=== PATIENT | female | born 1965 | race Two or more races ===

== ENCOUNTER 2016-07-05 16:49 | Emergency (ER) | payer MEDICAID ==
[~2016-07-05] VITALS: Ht 160 cm; Wt 86.2 kg
[~2016-07-05 16:49] MED LIST: ASPI81TA13 PO; CHOL500021 PO; MULTCAP45 PO; OMEGCAP2 PO
[2016-07-05 17:33] VITALS: BP 140/75
[2016-07-05 18:11] LABS: Basophils # (auto) 0.1 uL; Basophils % (auto) 0.7 % (0.0-2.0); Eosinophils # (auto) 0.1 uL; Eosinophils % (auto) 0.8 % (0.0-7.0); Hematocrit 41.1 % (36.0-46.0); Hemoglobin 13.7 g/dL (12.2-16.2); Lymphocytes # (auto) 3.1 uL; Lymphocytes % (auto) 32.2 % (10.0-50.0); Mean Corpuscular Hemoglobin 30.2 pg (28.0-32.0); Mean Corpuscular Hgb Conc. 33.3 g/dL (32.0-36.0); Mean Corpuscular Volume 90.4 fL (80.0-100.0); Mean Platelet Volume 10.1 fL (7.4-10.4); Monocytes # (auto) 0.7 uL; Monocytes % (auto) 7.7 % (0.0-12.0); Neutrophils # (auto) 5.6 uL; Neutrophils % (auto) 58.6 % (37.0-80.0); Platelet Count (auto) 292 10^3/uL (140-450); Red Cell Distribution Width 13.5 % (11.6-16.0); White Blood Cell 9.6 10^3/uL (4.4-10.8)
[2016-07-05 18:20] LABS: Urine Bilirubin Negative (Negative); Urine Blood Negative /uL (Negative); Urine Color Yellow (Yellow); Urine Glucose Normal (Normal); Urine Ketone Negative (Negative); Urine Mucus FEW (None Seen); Urine Nitrite Negative (Negative); Urine RBC <1 /hpf (0 - 4); Urine Squamous Epithelial Cell FEW /hpf (<5); Urine Urobilinogen Normal (Negative)
[2016-07-05 18:26] LABS: Albumin 3.9 g/dL (3.4-5.0); Calcium 9.2 mg/dL (8.5-10.1); Potassium 3.6 mmol/L (3.5-5.1)
[2016-07-05 18:28] LABS: BUN/Creatinine Ratio 16.9
[2016-07-05 18:31] LABS: Bilirubin, Total 0.3 mg/dL (0.2-1.0); Total Protein 8.1 g/dL (6.4-8.2)
== END 2016-07-05 20:05 | disposition left against medical advice (07) ==
LOC: ER 17:03
DX: M79.605 Pain in left leg (principal); Z53.21 Procedure and treatment not carried out due to patient leaving prior to being seen by health care provider
CPT/HCPCS: 36415; 80053; 81001; 81025; 85025; 93970

== ENCOUNTER 2016-11-01 09:04 | Emergency (ER) | payer MEDICAID ==
[~2016-11-01] VITALS: Ht 160 cm; Wt 88.0 kg
[2016-11-01 09:30] VITALS: BP 158/98
[2016-11-01 09:44] LABS: Basophils # (auto) 0 uL; Basophils % (auto) 0.7 % (0.0-2.0); CONDITION Y; Eosinophils # (auto) 0.1 uL; Eosinophils % (auto) 1.3 % (0.0-7.0); Hematocrit 40.3 % (36.0-46.0); Hemoglobin 13.7 g/dL (12.2-16.2); Lymphocytes # (auto) 2.7 uL; Lymphocytes % (auto) 38.8 % (10.0-50.0); Mean Corpuscular Hemoglobin 30.8 pg (28.0-32.0); Mean Corpuscular Volume 90.7 fL (80.0-100.0); Mean Platelet Volume 9.6 fL (7.4-10.4); Monocytes # (auto) 0.5 uL; Monocytes % (auto) 7.6 % (0.0-12.0); Neutrophils # (auto) 3.6 uL; Neutrophils % (auto) 51.6 % (37.0-80.0); Platelet Count (auto) 293 10^3/uL (140-450); Red Cell Distribution Width 13.8 % (11.6-16.0)
[2016-11-01 09:46] LABS: Urine Bilirubin Negative (Negative); Urine Blood Negative /uL (Negative); Urine Color Yellow (Yellow); Urine Glucose Normal (Normal); Urine Ketone Negative (Negative); Urine Nitrite Negative (Negative); Urine RBC <1 /hpf (0 - 4); Urine Squamous Epithelial Cell FEW /hpf (<5); Urine Urobilinogen Normal (Negative)
[2016-11-01 10:04] LABS: Albumin 3.8 g/dL (3.4-5.0); BUN/Creatinine Ratio 23.6; Bilirubin, Total 0.4 mg/dL (0.2-1.0); Calcium 9.3 mg/dL (8.5-10.1); Potassium 3.9 mmol/L (3.5-5.1); Total Protein 7.5 g/dL (6.4-8.2)
== END 2016-11-01 12:41 | disposition home or self-care (01) ==
LOC: ER 09:04
DX: N83.209 Unspecified ovarian cyst, unspecified side (principal)
CPT/HCPCS: 36415; 74176; 80053; 81001; 85025

== ENCOUNTER 2018-02-19 15:25 | Emergency (ER) | payer MEDICAID ==
[~2018-02-19] VITALS: Ht 160 cm; Wt 86.2 kg
[~2018-02-19 15:25] MED LIST changes: +ASPI1TAB19 PO; -ASPI81TA13 PO
[2018-02-19 15:54] VITALS: BP 150/90
[2018-02-19] MEDS ORDERED: ONDANSETRON ODT 4 MG TAB PO ONE (16:15)
[2018-02-19] MEDS ORDERED: KETOROLAC TROMETH 60MG/2ML VIAL IM ONE (16:15)
[2018-02-19 16:48] LABS: Basophils # (auto) 0 uL; Basophils % (auto) 0.5 % (0.0-2.0); Eosinophils # (auto) 0.1 uL; Eosinophils % (auto) 1.5 % (0.0-7.0); Hematocrit 41.5 % (36.0-46.0); Hemoglobin 13.8 g/dL (12.2-16.2); Lymphocytes # (auto) 2.7 uL; Lymphocytes % (auto) 28.7 % (10.0-50.0); Mean Corpuscular Hemoglobin 30.6 pg (28.0-32.0); Mean Corpuscular Hgb Conc. 33.3 g/dL (32.0-36.0); Mean Corpuscular Volume 91.9 fL (80.0-100.0); Monocytes # (auto) 0.6 uL; Monocytes % (auto) 6.4 % (0.0-12.0); Neutrophils # (auto) 5.9 uL; Neutrophils % (auto) 62.9 % (37.0-80.0); Nucleated Red Blood Cells % 0.1 %; Platelet Count (auto) 253 10^3/uL (140-450); Red Blood Cells 4.52 10^6/uL (4.0-5.20); Red Cell Distribution Width 13.6 % (11.8-14.3); White Blood Cell 9.3 10^3/uL (4.4-10.8)
[2018-02-19 17:21] LABS: Urine Bacteria NONE SEEN /hpf (None Seen); Urine Blood Negative /uL (Negative); Urine Mucus FEW (None Seen); Urine Specific Gravity 1.018 (1.001-1.035); Urine WBC <1 /hpf (0 - 5)
== END 2018-02-19 18:23 | disposition home or self-care (01) ==
LOC: ER 15:27
DX: R51 Headache (principal); R42 Dizziness and giddiness; M25.512 Pain in left shoulder; G89.29 Other chronic pain; Z79.82 Long term (current) use of aspirin; Z79.899 Other long term (current) drug therapy; Z90.49 Acquired absence of other specified parts of digestive tract
CPT/HCPCS: 36415; 73030; 81001; 81025; 85025; 93005; 96372; 99285; J1885; Q0162

== ENCOUNTER 2018-06-02 03:26 | Inpatient (IN) | payer MEDICAID ==
[~2018-06-02] VITALS: Ht 160 cm; Wt 91.6 kg
[2018-06-02 05:34] LABS: Basophils # (auto) 0 uL; Basophils % (auto) 0.6 % (0.0-2.0); Eosinophils # (auto) 0.2 uL; Eosinophils % (auto) 2.7 % (0.0-7.0); Hematocrit 39.2 % (36.0-46.0); Hemoglobin 13.5 g/dL (12.2-16.2); Lymphocytes # (auto) 2.4 uL; Lymphocytes % (auto) 42.7 % (10.0-50.0); Mean Corpuscular Hemoglobin 31.1 pg (28.0-32.0); Mean Corpuscular Hgb Conc. 34.5 g/dL (32.0-36.0); Mean Corpuscular Volume 90.1 fL (80.0-100.0); Monocytes # (auto) 0.5 uL; Monocytes % (auto) 8.2 % (0.0-12.0); Neutrophils # (auto) 2.6 uL; Neutrophils % (auto) 45.8 % (37.0-80.0); Nucleated Red Blood Cells % 0.1 %; Platelet Count (auto) 244 10^3/uL (140-450); Red Blood Cells 4.35 10^6/uL (4.0-5.20); Red Cell Distribution Width 13.6 % (11.8-14.3); White Blood Cell 5.7 10^3/uL (4.4-10.8)
[2018-06-02 05:47] LABS: INR 0.91 (0.9-1.15); Partial Thromboplastin Time 25.9 sec (23.78-33.04); Prothrombin Time 9.8 sec (9.27-12.13)
[2018-06-02 05:57] LABS: Albumin 3.7 g/dL (3.4-5.0); Anion Gap 9 (5-15); BUN/Creatinine Ratio 22.4; Blood Urea Nitrogen 13 mg/dL (7-18); Calcium 8.6 mg/dL (8.5-10.1); Carbon Dioxide 26 mmol/L (21-32); Chloride 106 mmol/L (98-107); GFR African American 142 mL/min; GFR Non-African American 117 mL/min; Glucose 91 mg/dL (74-106); Magnesium 2.3 mg/dL (1.6-2.6); Sodium 141 mmol/L (136-145)
[2018-06-02 06:07] LABS: Alanine Aminotransferase 64 U/L (13-56); Alkaline Phosphatase 81 U/L (45-117); Aspartate Aminotransferase 37 U/L (15-37); Bilirubin, Total 0.3 mg/dL (0.2-1.0); Total Protein 7.6 g/dL (6.4-8.2)
[2018-06-02] MEDS ORDERED: SODIUM CHLORIDE 0.9% 1,000 ML IV ONE (07:16)
[2018-06-02] MEDS ORDERED: ASPirin 81 mg TAB PO ONE (07:30)
[2018-06-02] MEDS ORDERED: NITROGLYCERIN 0.4 MG SL TAB SL ONE (07:30)
[2018-06-02] MEDS ORDERED: LACTULOSE 20Gm/30ML SOLN PO PRN (10:30)
[2018-06-02] MEDS ORDERED: HYDROcodone-ACET 5/325MG TAB PO PRN (10:30)
[2018-06-02] MEDS ORDERED: MORPHINE SULFATE 4 MG/ML SYR/VIAL IV PRN ×2 (10:30)
[2018-06-02] MEDS ORDERED: NITROGLYCERIN 0.4 MG SL TAB SL PRN (10:30)
[2018-06-02] MEDS: SODIUM CHLORIDE 0.9% 1,000 ML IV SCH ×2 (10:38→22:29)
[2018-06-02 12:14] LABS: Alcohol, Urine < 3.0 mg/dL (0-5); Amphetamine Screen, Urine NEGATIVE (NEGATIVE); Barbiturate Scree,Urine NEGATIVE (NEGATIVE); Benzodiazephine Screen, Urine NEGATIVE (NEGATIVE); Cannabinoid Screen, Urine NEGATIVE (NEGATIVE); Cocaine Screen, Urine NEGATIVE (NEGATIVE); Opiate Scree,Urine NEGATIVE (NEGATIVE); Phencyclidine Screen, Urine NEGATIVE (NEGATIVE)
[2018-06-02] MEDS: ATORVASTATIN 20 MG TAB PO SCH (22:15)
[2018-06-03 05:00] VITALS: BP 107/62
--- NOTE | 2018-06-03 07:40 | NUR ---
Patient sitting in bed, awake, oriented x4. Patient asked when is she going home. Explained to patient we're waiting for the hospitalist to come over.
[2018-06-03 08:39] LABS: Cholesterol 214 mg/dL (< 200); HDL Cholesterol 64 mg/dL (40-59); LDL Cholesterol 126 mg/dL (< 100); Triglycerides 90 mg/dL (< 150)
[2018-06-03 08:41] VITALS: BP 109/74
[2018-06-03] MEDS: NITROGLYCERIN 0.2MG/HR TOPICAL PATCH TD SCH (10:00)
[2018-06-03] MEDS: PANTOPRAZOLE 40 MG TAB PO SCH (10:00)
[2018-06-03] MEDS: ENOXAPARIN SOD 40 MG/0.4 ML SYRINGE SC SCH (10:00)
[2018-06-03] MEDS: ASPirin 81 mg TAB PO SCH (10:00)
[2018-06-03] MEDS: SODIUM CHLORIDE 0.9% 1,000 ML IV SCH (10:10)
[2018-06-03 10:38] LABS: Hepatitis B Surface Antibody Positive
[2018-06-03 11:15] LABS: Hepatitis A Total Antibody Positive
[2018-06-03] MEDS: ACETAMINOPHEN 500 MG TAB PO PRN ×2 (12:10→19:31)
--- NOTE | 2018-06-03 12:10 | NUR ---
Patient stated her headache is at 6/10 pain level at this time. Tylenol PO given as ordered.
[2018-06-03 12:41] LABS: Hepatitis B Core Total AB Negative; Hepatitis B Surface Antigen Negative (Negative); Hepatitis C Antibody Negative (Negative)
[2018-06-03 13:00] VITALS: BP 119/77
--- NOTE | 2018-06-03 13:47 | NUR ---
Dr. Mcgee came over. said she has seen the patient. No orders for discharge today.
--- NOTE | 2018-06-03 14:52 | NUR ---
Patient to be transported via wheelchair to Stress lab for Stress Test as ordered.
--- NOTE | 2018-06-03 15:25 | NUR ---
Patient back to room post Stress Test. Patient no acute distress noted.
--- NOTE | 2018-06-03 16:02 | NUR ---
Patient stated she has headache, asked for Tylenol. Explained to patient she's not due for Tylenol at this time. Patient refused [place] 5/325 for pain. Patient stated she must be hungry asked for crackers or sandwich, water.
[2018-06-03 17:00] VITALS: BP 119/79
[2018-06-03] MEDS: ATORVASTATIN 20 MG TAB PO SCH (19:27)
[2018-06-03] MEDS: PROMETHAZINE HCL 25 MG/ML 1ML IV PRN (20:55)
[2018-06-03 22:00] VITALS: BP 148/73
[2018-06-04] MEDS: SODIUM CHLORIDE 0.9% 1,000 ML IV SCH (02:28)
[2018-06-04 05:22] VITALS: BP 114/66
--- NOTE | 2018-06-04 07:45 | NUR ---
Received patient with a new IV line on the left forearm, 22 gauge, intact and patent.
--- NOTE | 2018-06-04 08:30 | NUR ---
Patient needs two IV lines for Stress Test as per [facility].
--- NOTE | 2018-06-04 08:42 | NUR ---
New IV line inserted on the left wrist, 22 gauge, intact and patent. Patient able to tolerate it.
--- NOTE | 2018-06-04 08:45 | NUR ---
Called [facility]. [facility] made aware patient has two IV lines. [facility] said they're going to bring the patient to [facility] for Stress Test.
[2018-06-04] MEDS: ACETAMINOPHEN 500 MG TAB PO PRN (08:54)
[2018-06-04] MEDS: PROMETHAZINE HCL 25 MG/ML 1ML IV PRN (08:54)
--- NOTE | 2018-06-04 08:54 | NUR ---
Patient stated she has headache and nauseous. Phenergan IVP given for nausea, Tylenol PO given for headache as ordered. MOR Rowe from [facility] made aware.
[2018-06-04 09:17] LABS: Albumin 3.6 g/dL (3.4-5.0)
[2018-06-04 09:20] LABS: Bilirubin, Direct 0.1 mg/dL (0-0.2); Bilirubin, Total 0.5 mg/dL (0.2-1.0); Total Protein 7.4 g/dL (6.4-8.2)
[2018-06-04 09:27] VITALS: BP 129/81
[2018-06-04] MEDS: ASPirin 81 mg TAB PO SCH (10:00)
[2018-06-04] MEDS: ENOXAPARIN SOD 40 MG/0.4 ML SYRINGE SC SCH (10:00)
[2018-06-04] MEDS: NITROGLYCERIN 0.2MG/HR TOPICAL PATCH TD SCH (10:00)
[2018-06-04] MEDS: PANTOPRAZOLE 40 MG TAB PO SCH (10:00)
--- NOTE | 2018-06-04 11:25 | NUR ---
Dr. Mcgee came over. is aware that patient will have a Stress Test today. Dr. Mcgee waiting for the 2D Echo mode results.
[2018-06-04] MEDS ORDERED: SODIUM CHLORIDE 0.9% 1,000 ML IV SCH (11:30)
[2018-06-04 11:47] VITALS: BP 134/81
[2018-06-04 13:00] VITALS: BP 132/69
[2018-06-04] MEDS ORDERED: ATOR20TA50 PO (14:00)
[2018-06-04 15:38] VITALS: BP 129/81
[2018-06-04 15:55] VITALS: BP 132/69
--- NOTE | 2018-06-04 16:35 | NUR ---
Discharge instructions given as ordered. Encourage to follow up with PMD as instructed. All questions and concerns addressed. Patient verbalized understanding. Medication reconciliation form completed and copy given to patient. IV removed with catheter intact, pressure dressing applied. Telemetry unit returned to [facility]. Doctor's notes/excuse note as requested by patient's for not working yesterday given to patient's to present to his employer. Patient taken to vehicle via wheelchair with all personal belongings, accompanied by staff and family member. No distress noted at time of departure.
[2018-06-04] MEDS ORDERED: ATORVASTATIN 20 MG TAB PO SCH (22:00)
== END 2018-06-04 16:36 | disposition home or self-care (01) | DRG 203 ==
LOC: ER 03:26 → TELE 10:30 → TELE-WESTW 22:15
PROVIDERS: ADMIT Internal Medicine; ATTEND Internal Medicine
DX: R07.89 Other chest pain (principal); E66.9 Obesity, unspecified; E78.5 Hyperlipidemia, unspecified; I10 Essential (primary) hypertension; Z68.35 Body mass index [BMI] 35.0-35.9, adult; Z82.49 Family history of ischemic heart disease and other diseases of the circulatory system; Z83.3 Family history of diabetes mellitus; Z90.49 Acquired absence of other specified parts of digestive tract
CPT/HCPCS: 36415; 71046; 76705; 80053; 80061; 80076; 80307; 82550; 83735; 84443; 84484; 85025; 85379; 85610; 85652; 85730; 86141; 86704; 86706; 86708; 86803; 87340; 93005; 93306; 94761; 96360; G0378